=== PATIENT | female | born 1975 ===

== ENCOUNTER 2025-06-25 10:40 | Emergency (ER) | payer SELFPAY ==
[~2025-06-25] VITALS: Ht 165.1 cm; Wt 72.0 kg
[2025-06-25 10:48] VITALS: BP 113/74; PULSE 88; RESP 18; TEMP 98.1; O2SAT 99
== END 2025-06-25 10:52 | disposition left against medical advice (07) ==
LOC: ER 10:40
DX: M25.552 Pain in left hip (principal)
CPT/HCPCS: 99281